=== PATIENT | female | born 1975 | race Asian ===

== ENCOUNTER 2017-08-30 21:57 | Inpatient (IN) | payer OTHER ==
[2017-08-30] MEDS ORDERED: ACETAMINOPHEN 325 MG TAB PO (23:30)
[2017-08-30] MEDS ORDERED: ONDANSETRON 4 MG TAB PO (23:30)
[2017-08-30 23:53] LABS: ADD MAN DIFF? NO
[2017-08-30 23:57] LABS: WHITE BLOOD COUNT 11.2 10^3/ul (4.8-10.8)
[2017-08-30 23:57] LABS: BASOPHILS % 0.4 % (0.0-2.0); EOSINOPHILS # 0.8 10^3/ul (0.0-0.5); EOSINOPHILS % 7.2 % (0.0-7.0); HEMATOCRIT 31.1 % (37.0-47.0); HEMOGLOBIN 9.9 g/dl (12.0-16.0); LYMPHOCYTES % 27.1 % (15.0-51.0); MEAN CORPUSCULAR HEMOGLOBIN 26.2 pg (29.0-33.0); MEAN CORPUSCULAR HGB CONC 31.8 g/dl (32.0-37.0); MEAN CORPUSCULAR VOLUME 82.3 fl (82.0-101.0); MEAN PLATELET VOLUME 9.4 fl (7.4-10.4); MONOCYTE # 0.8 10^3/ul (0.3-0.9); MONOCYTES % 6.7 % (0.0-11.0); NEUTROPHIL # 6.5 10^3/ul (1.6-7.5); NEUTROPHILS % 57.8 % (39.0-77.0); PLATELET COUNT 385 10^3/UL (140-415); RED BLOOD COUNT 3.78 10^6/ul (4.20-5.40); RED CELL DISTRIBUTION WIDTH 14.4 % (11.5-14.5)
[2017-08-31 00:07] LABS: HEMOGLOBIN A1C 6.1 % (0-5.9)
[2017-08-31 00:19] LABS: INR 0.85; PARTIAL THROMBOPLASTIN TIME 30.2 Sec (25.0-35.0); PROTIME 11.7 Sec (11.9-14.9); PT RATIO 0.9
[2017-08-31 00:22] LABS: ALANINE AMINOTRANSFERASE 18 IU/L (13-69); ALBUMIN 4.2 g/dl (3.3-4.9); ALBUMIN/GLOBULIN RATIO 1.07; ALKALINE PHOSPHATASE 83 IU/L (42-121); ANION GAP 20 (8-16); ASPARTATE AMINO TRANSFERASE 21 IU/L (15-46); BLOOD UREA NITROGEN 56 mg/dl (7-20); CALCIUM 8.8 mg/dl (8.4-10.2); CARBON DIOXIDE 18 mmol/L (21-31); CHLORIDE 110 mmol/L (97-110); CREATININE 5.81 mg/dl (0.44-1.00); GLUCOSE 121 mg/dl (70-220); POTASSIUM 4.7 mmol/L (3.5-5.1); SODIUM 143 mmol/L (135-144); TOTAL PROTEIN 8.1 g/dl (6.1-8.1)
[2017-08-31] MEDS: ACCU-CHEK XX (00:23)
[2017-08-31] MEDS ORDERED: DEXTROSE 50% 50 ML SYRINGE IV ×2 (00:30)
[2017-08-31] MEDS ORDERED: GLUCOSE GEL 15 GRAM TUBE BUCCAL (00:30)
[2017-08-31] MEDS ORDERED: GLUCAGON 1 MG INJ IM (00:30)
[2017-08-31] MEDS ORDERED: GLUCOSE GEL 15 GRAM TUBE PO ×2 (00:30)
[2017-08-31 01:26] LABS: ADD UMIC YES; UR ASCORBIC ACID NEGATIVE (NEGATIVE); UR BILIRUBIN (Dip) NEGATIVE (NEGATIVE); UR BLOOD (Dip) 1+ mg/dL (NEGATIVE); UR CLARITY CLEAR (CLEAR); UR COLOR STRAW (YELLOW); UR GLUCOSE (Dip) 2+ mg/dL (NEGATIVE); UR KETONES (Dip) NEGATIVE (NEGATIVE); UR LEUKOCYTE ESTERASE (Dip) NEGATIVE Leu/ul (NEGATIVE); UR NITRITE (Dip) NEGATIVE (NEGATIVE); UR RBC 0 /HPF (0-5); UR SPECIFIC GRAVITY (Dip) 1.009 (1.003-1.030); UR TOTAL PROTEIN (Dip) 2+ mg/dl (NEGATIVE); UR UROBILINOGEN (Dip) NEGATIVE (NEGATIVE); UR WBC 0 /HPF (0-5)
[2017-08-31] MEDS: PANTOPRAZOLE (EC) 40 MG TAB PO (05:41)
[2017-08-31] MEDS: INSULIN ASPART [NOVOLOG] 3 ML PEN SC ×4 (08:00→21:00)
[2017-08-31] MEDS: FUROSEMIDE 20 MG INJ IV (09:56)
[2017-08-31] MEDS: AMLODIPINE 10 MG TAB PO (09:56)
[2017-08-31] MEDS: ASPIRIN 81 MG TAB PO (09:56)
[2017-08-31 13:11] LABS: HAAIG REFLEX REFLEX FILED
[2017-08-31 14:03] LABS: HEPATITIS B SURFACE ANTIGEN NEGATIVE (NEGATIVE)
[2017-08-31 14:20] LABS: HEPATITIS B CORE ANTIBODY NEGATIVE (NEGATIVE); HEPATITIS C VIRAL ANTIBODY NEGATIVE (NEGATIVE)
[2017-08-31] MEDS: NA BICARBONATE 650 MG TAB PO ×2 (15:47→21:39)
[2017-09-01] MEDS: ACCU-CHEK XX (02:00)
[2017-09-01] MEDS: PANTOPRAZOLE (EC) 40 MG TAB PO (05:00)
[2017-09-01 05:04] LABS: ADD MAN DIFF? NO
[2017-09-01 05:08] LABS: WHITE BLOOD COUNT 9.4 10^3/ul (4.8-10.8)
[2017-09-01 05:08] LABS: BASOPHILS % 0.4 % (0.0-2.0); EOSINOPHILS # 0.8 10^3/ul (0.0-0.5); EOSINOPHILS % 8.4 % (0.0-7.0); HEMATOCRIT 32.8 % (37.0-47.0); HEMOGLOBIN 10.5 g/dl (12.0-16.0); LYMPHOCYTES # 2.5 10^3/ul (0.8-2.9); LYMPHOCYTES % 26.5 % (15.0-51.0); MEAN CORPUSCULAR HEMOGLOBIN 26.3 pg (29.0-33.0); MEAN CORPUSCULAR VOLUME 82.2 fl (82.0-101.0); MEAN PLATELET VOLUME 9.7 fl (7.4-10.4); MONOCYTE # 0.6 10^3/ul (0.3-0.9); MONOCYTES % 6.6 % (0.0-11.0); NEUTROPHIL # 5.4 10^3/ul (1.6-7.5); NEUTROPHILS % 57.4 % (39.0-77.0); PLATELET COUNT 390 10^3/UL (140-415); RED BLOOD COUNT 3.99 10^6/ul (4.20-5.40); RED CELL DISTRIBUTION WIDTH 14.1 % (11.5-14.5)
[2017-09-01 05:37] LABS: MAGNESIUM 2.2 mg/dl (1.7-2.5)
[2017-09-01 05:37] LABS: PHOSPHORUS 5.8 mg/dl (2.5-4.9)
[2017-09-01 05:38] LABS: ANION GAP 20 (8-16); BLOOD UREA NITROGEN 52 mg/dl (7-20); CALCIUM 8.8 mg/dl (8.4-10.2); CARBON DIOXIDE 19 mmol/L (21-31); CHLORIDE 110 mmol/L (97-110); CREATININE 5.93 mg/dl (0.44-1.00); GLUCOSE 125 mg/dl (70-220); POTASSIUM 4.9 mmol/L (3.5-5.1); SODIUM 144 mmol/L (135-144)
[2017-09-01] MEDS: INSULIN ASPART [NOVOLOG] 3 ML PEN SC ×4 (07:52→20:58)
[2017-09-01] MEDS: ASPIRIN 81 MG TAB PO (08:23)
[2017-09-01] MEDS: AMLODIPINE 10 MG TAB PO (08:23)
[2017-09-01] MEDS: NA BICARBONATE 650 MG TAB PO (08:23)
[2017-09-01] MEDS: FUROSEMIDE 20 MG INJ IV (08:30)
[2017-09-01] MEDS ORDERED: SODIUM CHLORIDE 0.9% 1L BAG IV ×2 (11:30→17:30)
[2017-09-01] MEDS ORDERED: ALBUMIN HUMAN 25% 50 ML IV ×2 (11:30→17:30)
[2017-09-01] MEDS ORDERED: SOD CHLORIDE 0.9% 500 ML (12:30)
[2017-09-01] MEDS ORDERED: HEPARIN 1000 UNITS/ML 10 ML INJ (12:30)
[2017-09-01] MEDS ORDERED: LIDOCAINE 1% (MDV) 20 ML INJ (12:30)
[2017-09-01] MEDS ORDERED: MIDAZOLAM 1 MG/ML 2 ML INJ (13:46)
[2017-09-01] MEDS ORDERED: PROPOFOL 0 ML (13:46)
[2017-09-01] MEDS ORDERED: FENTAnyl 50 MCG/ML VIAL (13:46)
[2017-09-01] MEDS ORDERED: NEOSTIGMINE 3 MG/3 ML SYRINGE (13:46)
[2017-09-01] MEDS ORDERED: CEFAZOLIN 1 GM/50 ML (PMX) 50 ML IVPB (14:08)
[2017-09-01] MEDS ORDERED: PROPOFOL 20 ML (14:14)
[2017-09-01] MEDS ORDERED: ONDANSETRON 4 MG INJ IV (14:30)
[2017-09-01] MEDS ORDERED: HYDROmorphONE (0.2 MG/ML) 10ML SYG IV ×2 (14:30)
[2017-09-01 15:09] LABS: HEPATITIS B SURFACE ANTIGEN NEGATIVE (NEGATIVE)
[2017-09-01] MEDS ORDERED: SOD CHLORIDE 0.9% 1,000 ML IV (17:27)
[2017-09-01] MEDS: HEPARIN 1000 UNITS/ML 10 ML INJ CATHETER ×2 (18:17→20:08)
[2017-09-02] MEDS: ACCU-CHEK XX (01:59)
[2017-09-02] MEDS: PANTOPRAZOLE (EC) 40 MG TAB PO (05:33)
[2017-09-02 07:48] LABS: MAGNESIUM 2.3 mg/dl (1.7-2.5)
[2017-09-02 07:53] LABS: ANION GAP 20 (8-16); BLOOD UREA NITROGEN 41 mg/dl (7-20); CARBON DIOXIDE 24 mmol/L (21-31); CHLORIDE 103 mmol/L (97-110); CREATININE 4.83 mg/dl (0.44-1.00); GLUCOSE 131 mg/dl (70-220); POTASSIUM 4.7 mmol/L (3.5-5.1); SODIUM 142 mmol/L (135-144)
[2017-09-02] MEDS: INSULIN ASPART [NOVOLOG] 3 ML PEN SC ×4 (08:00→20:36)
[2017-09-02] MEDS: ASPIRIN 81 MG TAB PO (09:47)
[2017-09-02] MEDS: AMLODIPINE 10 MG TAB PO (09:47)
[2017-09-02] MEDS: FUROSEMIDE 20 MG INJ IV (09:47)
[2017-09-02] MEDS ORDERED: SOD CHLORIDE 0.9% 1,000 ML IV (18:56)
[2017-09-02] MEDS ORDERED: ALBUMIN HUMAN 25% 50 ML IV (19:00)
[2017-09-02] MEDS ORDERED: SODIUM CHLORIDE 0.9% 1L BAG IV (19:00)
[2017-09-03] MEDS: ACCU-CHEK XX (02:00)
[2017-09-03 05:53] LABS: ADD MAN DIFF? NO
[2017-09-03] MEDS: PANTOPRAZOLE (EC) 40 MG TAB PO (05:54)
[2017-09-03 06:02] LABS: BASOPHIL # 0.1 10^3/ul (0.0-0.1); BASOPHILS % 0.4 % (0.0-2.0); EOSINOPHILS # 0.5 10^3/ul (0.0-0.5); EOSINOPHILS % 4.9 % (0.0-7.0); HEMATOCRIT 34.9 % (37.0-47.0); LYMPHOCYTES # 3.1 10^3/ul (0.8-2.9); LYMPHOCYTES % 27.9 % (15.0-51.0); MEAN CORPUSCULAR HEMOGLOBIN 25.9 pg (29.0-33.0); MEAN CORPUSCULAR HGB CONC 31.5 g/dl (32.0-37.0); MEAN CORPUSCULAR VOLUME 82.3 fl (82.0-101.0); MEAN PLATELET VOLUME 9.8 fl (7.4-10.4); MONOCYTE # 0.9 10^3/ul (0.3-0.9); MONOCYTES % 8.2 % (0.0-11.0); NEUTROPHIL # 6.5 10^3/ul (1.6-7.5); NEUTROPHILS % 58.2 % (39.0-77.0); PLATELET COUNT 350 10^3/UL (140-415); RED BLOOD COUNT 4.24 10^6/ul (4.20-5.40)
[2017-09-03 06:02] LABS: WHITE BLOOD COUNT 11.1 10^3/ul (4.8-10.8)
[2017-09-03 06:38] LABS: MAGNESIUM 2.5 mg/dl (1.7-2.5); PHOSPHORUS 6.1 mg/dl (2.5-4.9)
[2017-09-03 06:38] LABS: CALCIUM 8.8 mg/dl (8.4-10.2)
[2017-09-03] MEDS: INSULIN ASPART [NOVOLOG] 3 ML PEN SC ×2 (08:00→12:00)
[2017-09-03] MEDS: HEPARIN 1000 UNITS/ML 10 ML INJ CATHETER (10:33)
[2017-09-03] MEDS: ASPIRIN 81 MG TAB PO (10:39)
[2017-09-03] MEDS: AMLODIPINE 10 MG TAB PO (10:39)
[2017-09-03] MEDS: FUROSEMIDE 20 MG INJ IV (10:39)
== END 2017-09-03 15:23 | disposition home or self-care (01) | DRG 683 ==
LOC: PP2 21:57
PROVIDERS: Internal Medicine Nephrology
PROC: 5A1D70Z Performance of Urinary Filtration, Intermittent, Less than 6 Hours Per Day (ICD-10-PCS; principal; 2017-09-01)
DX: N17.9 Acute kidney failure, unspecified (principal); I12.0 Hypertensive chronic kidney disease with stage 5 chronic kidney disease or end stage renal disease; E87.2 Acidosis; E11.22 Type 2 diabetes mellitus with diabetic chronic kidney disease; E87.5 Hyperkalemia; N18.6 End stage renal disease; E11.40 Type 2 diabetes mellitus with diabetic neuropathy, unspecified; E78.5 Hyperlipidemia, unspecified; E66.9 Obesity, unspecified; Z68.31 Body mass index [BMI] 31.0-31.9, adult; Z99.2 Dependence on renal dialysis; Z79.84 Long term (current) use of oral hypoglycemic drugs
CPT/HCPCS: 36558; 71045; 76775; 76942; 80048; 80053; 81001; 82310; 82962; 83036; 83735; 84100; 84703; 85025; 85610; 85730; 86704; 86709; 86803; 87340; 90935; 93005; 93970; J1940

== ENCOUNTER 2018-05-30 10:49 | Day surgery (SDC) | payer MEDICARE, OTHER ==
[~2018-05-30 10:49] MED LIST: CEFAZOLIN 1 GM INJ
[2018-05-30 11:58] LABS: ADD MAN DIFF? NO
[2018-05-30 12:01] LABS: BASOPHIL # 0.1 10^3/ul (0.0-0.1); BASOPHILS % 0.7 % (0.0-2.0); EOSINOPHILS # 0.1 10^3/ul (0.0-0.5); EOSINOPHILS % 1.4 % (0.0-7.0); HEMATOCRIT 39.3 % (37.0-47.0); HEMOGLOBIN 13.1 g/dl (12.0-16.0); LYMPHOCYTES # 2.7 10^3/ul (0.8-2.9); LYMPHOCYTES % 31.1 % (15.0-51.0); MEAN CORPUSCULAR HEMOGLOBIN 30.5 pg (29.0-33.0); MEAN CORPUSCULAR HGB CONC 33.3 g/dl (32.0-37.0); MEAN CORPUSCULAR VOLUME 91.4 fl (82.0-101.0); MEAN PLATELET VOLUME 10.1 fl (7.4-10.4); MONOCYTE # 0.5 10^3/ul (0.3-0.9); MONOCYTES % 5.8 % (0.0-11.0); NEUTROPHIL # 5.2 10^3/ul (1.6-7.5); NEUTROPHILS % 60.5 % (39.0-77.0); PLATELET COUNT 288 10^3/UL (140-415); RED CELL DISTRIBUTION WIDTH 14.6 % (11.5-14.5)
[2018-05-30 12:01] LABS: WHITE BLOOD COUNT 8.7 10^3/ul (4.8-10.8)
[2018-05-30 12:19] LABS: ALANINE AMINOTRANSFERASE 21 IU/L (13-69); ALBUMIN/GLOBULIN RATIO 1.31; ALKALINE PHOSPHATASE 63 IU/L (42-121); ANION GAP 12 (5-13); ASPARTATE AMINO TRANSFERASE 30 IU/L (15-46); BILIRUBIN,INDIRECT 0.3 mg/dl (0-1.1); BILIRUBIN,TOTAL 0.3 mg/dl (0.2-1.3); BLOOD UREA NITROGEN 41 mg/dl (7-20); CALCIUM 9.4 mg/dl (8.4-10.2); CARBON DIOXIDE 31 mmol/L (21-31); CHLORIDE 96 mmol/L (97-110); CREATININE 5.11 mg/dl (0.44-1.00); Estimated GFR 9 mL/min (>60); GLUCOSE 99 mg/dl (70-220); POTASSIUM 4.7 mmol/L (3.5-5.1); SODIUM 139 mmol/L (135-144); TOTAL PROTEIN 8.8 g/dl (6.1-8.1)
[2018-05-30 12:21] LABS: INR 0.88; PT RATIO 0.9
[2018-05-30 12:28] LABS: PARTIAL THROMBOPLASTIN TIME 23.8 Sec (23.0-35.0)
[2018-05-30] MEDS ORDERED: LIDOCAINE 100 MG SYRINGE (14:14)
[2018-05-30] MEDS ORDERED: PROPOFOL 100 ML (14:14)
[2018-05-30] MEDS ORDERED: FENTAnyl 50 MCG/ML VIAL (14:15)
[2018-05-30] MEDS ORDERED: MIDAZOLAM 1 MG/ML 2 ML INJ (14:15)
[2018-05-30] MEDS ORDERED: GELATIN SIZE 100 SPONGE (14:29)
[2018-05-30] MEDS ORDERED: THROMBIN 5000 UNIT VIAL (14:41)
[2018-05-30] MEDS ORDERED: METOCLOPRAMIDE 10 MG INJ IV (15:00)
[2018-05-30] MEDS ORDERED: hydrALAzine 20 MG INJ IV (15:00)
[2018-05-30] MEDS ORDERED: MEPERIDINE 25 MG INJ IV (15:00)
[2018-05-30] MEDS ORDERED: FENTAnyl 50 MCG/ML VIAL IV ×2 (15:00)
[2018-05-30] MEDS ORDERED: HYDROmorphONE 1 MG/5 ML IV SYRINGE IV ×2 (15:00)
[2018-05-30] MEDS ORDERED: LABETALOL HCL 20MG INJ IV (15:00)
[2018-05-30] MEDS ORDERED: ONDANSETRON 4 MG INJ IV ×2 (15:00→17:30)
[2018-05-30] MEDS: BUPIVACAINE 0.5% (SDV) 30 ML INJ (15:25)
[2018-05-30] MEDS: LIDOCAINE 1% (STERILE-PAK) 30 ML INJ (15:29)
[2018-05-30] MEDS: HEPARIN 1000 UNITS/ML 10 ML INJ (15:29)
[2018-05-30] MEDS ORDERED: ACETAMINOPHEN 325 MG TAB PO (17:30)
== END 2018-05-30 18:21 | disposition home or self-care (01) ==
LOC: SDS 10:49
DX: I12.0 Hypertensive chronic kidney disease with stage 5 chronic kidney disease or end stage renal disease (principal); N18.6 End stage renal disease; E11.9 Type 2 diabetes mellitus without complications
CPT/HCPCS: 36821; 71045; 80053; 82962; 85025; 85610; 85730; 93005